=== PATIENT | male | born 1985 | race Asian ===

== ENCOUNTER 2019-06-09 19:21 | Emergency (ER) | payer SELFPAY ==
[~2019-06-09] VITALS: Ht 167.6 cm; Wt 63.5 kg
[2019-06-09 19:27] VITALS: BP 124/86
--- NOTE | 2019-06-09 19:30 | NUR ---
TO LOBBY A/W BED AMBULATORY
--- NOTE | 2019-06-09 20:27 | NUR ---
PT AMBULATED TO ER BED 04
--- NOTE | 2019-06-09 20:35 | NUR ---
DR ARROYO AT BEDSIDE
--- NOTE | 2019-06-09 20:35 | NUR ---
DR ARROYO AT BEDSIDE.
--- NOTE | 2019-06-09 20:42 | NUR ---
34 YO MALE CO FLANK PAIN X3D. PT STATES THAT PAIN IS 2/10 NOW AND WALKING HELPS RELIEVE THE PAIN. PT HAS NO MED HX AND NO RX MEDS .
--- NOTE | 2019-06-09 21:03 | NUR ---
PATIENT LEFT WITHOUT FURTHER CARE AT THIS TIME. REFUSING CT SCAN. ERMD AWARE.
--- NOTE | 2019-06-09 21:21 | NUR ---
PATIENT RETURNED STATING HE WISHES TO CONTINUE HIS CARE AT THIS TIME. ERMD AWARE. CARE RESUMED.
--- NOTE | 2019-06-09 21:21 | NUR ---
PT AMBULATED TO ROOM 5. REPORT RECIVED FROM MOHINDER CHERRY.
[2019-06-09 21:31] LABS: APPEARANCE,URINE SL CLOUDY (CLEAR); BILIRUBIN,URINE NEGATIVE (NEGATIVE); BLOOD, URINE NEGATIVE (NEGATIVE); COLOR,URINE ORANGE (YELLOW); LEUKOCYTE ESTERASE ,URINE NEGATIVE (NEGATIVE); NITRITE, URINE NEGATIVE (NEGATIVE); PH,URINE 7.5 (5.0-9.0); UGLUCOSE NEGATIVE (NEGATIVE)
--- NOTE | 2019-06-09 21:40 | NUR ---
PT RETURNED FROM CT VIA W/C. PT AMBULATED TO BED WITH A STEADY GAIT.
--- NOTE | 2019-06-09 23:17 | NUR ---
Pt ambulated to [facility].
[2019-06-09 23:36] VITALS: BP 124/86
== END 2019-06-09 23:36 | disposition home or self-care (01) ==
LOC: MED 19:21
DX: N20.0 Calculus of kidney (principal)
CPT/HCPCS: 81003; 99284